=== PATIENT | male | born 1950 | race Native Hawaiian/Other Pacific Islander ===

== ENCOUNTER 2017-03-23 10:44 | Outpatient (CLI) | payer OTHER ==
[2017-03-23 11:21] LABS: PLATELET COUNT 126 K/uL (142-355)
[2017-03-23 12:52] LABS: POTASSIUM 3.6 mmol/L (3.6-5.2)
== END 2017-03-23 11:45 | disposition home or self-care (01) ==
LOC: LABW 10:44
PROVIDERS: Internal Medicine Nephrology
DX: I50.20 Unspecified systolic (congestive) heart failure (principal)
CPT/HCPCS: 36415; 80053; 80162; 81000; 82570; 84100; 84155; 85027